=== PATIENT | male | born 1985 | race Caucasian/White ===

== ENCOUNTER 2016-11-14 17:36 | Emergency (ER) | payer OTHER ==
--- NOTE | 2016-11-14 19:53 | ED ---
Skin Complaint - HPI Summary HPI Summary: Pt here w/ Rt thigh abscess x 1 week. Started as a small red bump in his stretch dian (reports he gets these fairly routinely but they go away over time) . This bump worsened over past week. He's been using wet compress and taking baths as well as manipulating it, making it sore and bruised. Today, it ruptured as his work pants were rubbing against it and has had drainage. Denies fever, chills, N/V/D. H/o MRSA + nare swab. - History of Current Complaint Chief Complaint: EDSoftTissueLowExtr Time Seen by Provider: 11/14/16 19:12 Stated Complaint: POSS ABSCESS RT THIGH Hx Obtained From: Patient Pain Intensity: 0 - Allergy/Home Medications Allergies/Adverse Reactions: Allergies Allergy/AdvReac Type Severity Reaction Status Date / Time Oxycodone AdvReac Severe "MAKES ME Verified 11/14/16 19:57 ANXIOUS" PMH/Surg Hx/FS Hx/Imm Hx Previously Healthy: Yes Endocrine/Hematology History: Denies: Hx Diabetes, Hx Thyroid Disease, Autoimmune Disease Cardiovascular History: Reports: Hx Hypertension - when he's nervous - no meds, Other Cardiovascular Problems/Disorders - h/o "fluid around his heart" - has had f/u w/o further tx Denies: Hx Congestive Heart Failure, Hx Deep Vein Thrombosis, Hx Myocardial Infarction, Hx Pacemaker/ICD Respiratory History: Denies: Hx Asthma, Hx Chronic Obstructive Pulmonary Disease (COPD), Hx Lung Cancer GI History: Denies: Hx Gall Bladder Disease, Hx Gastrointestinal Bleed, Hx Ulcer, Hx Urosepsis History: Denies: Hx Kidney Stones, Hx Renal Disease Neurological History: Denies: Hx Dementia, Hx Migraine, Hx Seizures, Hx Transient Ischemic Attacks (TIA) Psychiatric History: Reports: Hx Anxiety - tried lorazepam in past - no current meds Denies: Hx Depression, Hx Schizophrenia, Hx Bipolar Disorder Infectious Disease History: Yes Infectious Disease History: Reports: Hx of Known/Suspected MRSA - + on nasal swab Denies: Hx Clostridium Difficile, Hx Hepatitis, Hx Human Immunodeficiency Virus (HIV), Hx Shingles, Hx Tuberculosis, Hx Known/Suspected VRE, Hx Known/ Suspected VRSA, History Other Infectious Disease, Traveled Outside the [place] in Last 30 Days - Family History Known Family History: Positive: Hypertension - Social History Occupation: Employed Full-time Lives: With Family Alcohol Use: None Hx Substance Use: No Substance Use Type: Reports: None Smoking Status (MU): Current Some Day Smoker Type: Cigarettes Amount Used/How Often: 2-3/week Have You Smoked in the Last Year: Yes Review of Systems Constitutional: Negative Negative: Chest Pain Respiratory: Negative Gastrointestinal: Negative Positive: no symptoms reported Musculoskeletal: Negative Skin: Other - see HPI Neurological: Negative Negative: Headache Positive: Anxious All Other Systems Reviewed And Are Negative: Yes Physical Exam Triage Information Reviewed: Yes Vital Signs On Initial Exam: Initial Vitals Temp Pulse Resp BP Pulse Ox 97.6 F 108 20 161/97 100 11/14/16 17:38 11/14/16 17:38 11/14/16 17:38 11/14/16 17:38 11/14/16 17:38 Vital Signs Reviewed: Yes Appearance: Positive: Well-Appearing - anxious, No Pain Distress, Well-Nourished Skin: Positive: Warm - Erythematous, indurated area of 8cm x 8cm over Rt proximal anterior thigh w/ central scab - scant seropurulent drainage w/ pressure - TTP Head/Face: Positive: Normal Head/Face Inspection Eyes: Positive: Normal, EOMI ENT: Positive: Pharynx normal - mucosa moist Respiratory/Lung Sounds: Positive: Breath Sounds Present Cardiovascular: Positive: Normal, Pulses are Symmetrical in both Upper and Lower Extremities. Negative: Leg Edema Left, Leg Edema Right Musculoskeletal: Positive: Normal, Strength/ROM Intact Neurological: Positive: Normal, Sensory/Motor Intact, Alert, Oriented to Person Place, Time, CN Intact II-III Psychiatric: Positive: Anxious Procedures - Incision and Drainage Site: Rt anterior thigh Anesthesia: Local, Other - marcaine 0.5% - 5cc Instrument(s): Scalpel - #11 scant seropurulent d/c w/ firm scarring within/ hemodynamically stable Packing: Gauze Diagnostics - Vital Signs Vital Signs Temp Pulse Resp BP Pulse Ox 11/14/16 18:32 98.9 F 95 20 155/98 98 11/14/16 17:38 97.6 F 108 20 161/97 100 - Laboratory Lab Statement: Any lab studies that have been ordered have been reviewed, and results considered in the medical decision making process. Course/Dx - Course Course Of Treatment: Tissue is mostly scarred - some loculations ruptured and drained but appears to be more scar tissue than purulent material. Erythema and induration also appears to be more cellulitis. Provided loading dose of clindamycin IV and will d/c w/ PO clindamycin. Cx collected and wound packed. Advised to f/u w/ General Surgery d/t difficult nature of wound and lack of drainage w/ efforts today. Reviewed danger s/sx w/ pt who voices understanding and agrees w/ plan. - Diagnoses Provider Diagnoses: Abscess of right thigh Discharge - Discharge Plan Condition: Stable Disposition: HOME Prescriptions: Clindamycin CAP* [Cleocin 150 MG CAP*] 300 mg PO Q6H #40 cap Ibuprofen TAB* [Motrin TAB* 800 MG] 800 mg PO Q8HR PRN #20 tab PRN Reason: Pain Patient Education Materials: Abscess (ED), Cellulitis (ED) Forms: *Work Release Referrals: No Primary Care Phys,NOPCP [Primary Care Provider] - [facility] [place] [facility] [Outside] Savannah Steward MD [Medical Doctor] - Additional Instructions: You appear to have an abscess on your Right thigh. This was opened and drained then packed with gauze. Keep dressing and gauze in place for 2 days. You need a wound check and dressing change in 2 days by your PCP or a general surgery - do not change dressing on your own. Call tomorrow to schedule a follow-up appointment for tomorrow or Saturday. Contact numbers provided. Complete antibiotics as directed. Take ibuprofen with food for pain as directed. You may keep leg elevated and wear loose clothing to reduce pain, swelling and irritation. *If you develop fever, chills, vomiting, worsening redness (spreading down leg, up abdomen, into groin), return to ED
[2016-11-14] MEDS ORDERED: Clindamycin 600 MG IVPREMIX(* 600 MG/50 ML SDV IV ONE (20:00)
[2016-11-14] MEDS ORDERED: Ibuprofen TAB* 800 MG PO ONE (21:18)
[2016-11-14] MEDS ORDERED: Clindamycin CAP* 150 MG PO ONE (21:32)
[2016-11-14 21:49] VITALS: BP 138/91
--- NOTE | 2016-11-15 16:33 | PN ---
Progress Note - Progress Note Note: Spoke with lab, Patient's abscess is MRSA positive. Patient was placed on Clindamycin, covering most MRSA. Will wait for culture sensitivity before further action is taken, if needed.
== END 2016-11-14 21:48 | disposition home or self-care (01) ==
LOC: ED 17:36
DX: L02.415 Cutaneous abscess of right lower limb (principal); Z87.891 Personal history of nicotine dependence
CPT/HCPCS: 87070; 87205; 87640; 87641; 99283; A9270-GY

== ENCOUNTER 2017-05-10 13:59 | Emergency (ER) | payer OTHER ==
[2017-05-10 14:22] VITALS: BP 154/98
--- NOTE | 2017-05-10 14:53 | UC ---
Throat Pain/Nasal Amrit HPI - HPI Summary HPI Summary: 32 YEAR OLD MALE PRESENTS WITH COMPLAINS OF SORE THROAT, FEVER, AND CHILLS. - History of Current Complaint Chief Complaint: UCRespiratory Stated Complaint: SWOLLEN THROAT,FEVER,COUGH Time Seen by Provider: 05/10/17 14:53 Hx Obtained From: Patient Onset/Duration: Sudden Onset Severity: Moderate Pain Scale Used: 0-10 Numeric - 5 Cough: Nonproductive - Allergies/Home Medications Allergies/Adverse Reactions: Allergies Allergy/AdvReac Type Severity Reaction Status Date / Time Oxycodone AdvReac Severe "MAKES ME Verified 11/14/16 19:57 ANXIOUS" PMH/Surg Hx/FS Hx/Imm Hx Other History Of: Negative For: HIV, Hepatitis B, Hepatitis C - Surgical History Surgical History: None - Family History Known Family History: Positive: Hypertension - Social History Alcohol Use: None Substance Use Type: None Smoking Status (MU): Light Every Day Tobacco Smoker Type: Cigarettes Amount Used/How Often: 2-3/week Have You Smoked in the Last Year: Yes Household Exposure Type: Cigarettes Review of Systems Constitutional: Negative Skin: Negative Eyes: Negative ENT: Sore Throat, Nasal Discharge, Sinus Congestion, Sinus Pain/Tenderness Respiratory: Negative Cardiovascular: Negative Gastrointestinal: Negative Genitourinary: Negative Motor: Negative Neurovascular: Negative Musculoskeletal: Negative Neurological: Negative Psychological: Negative All Other Systems Reviewed And Are Negative: Yes Physical Exam Triage Information Reviewed: Yes Vital Signs: Initial Vital Signs Temp 37.9 C 05/10/17 14:20 Pulse 107 05/10/17 14:20 Resp 18 05/10/17 14:20 BP 154/98 05/10/17 14:20 Pulse Ox 98 05/10/17 14:20 Eye Exam: Normal ENT: Positive: Pharyngeal erythema, Nasal drainage, Tonsillar swelling, Tonsillar exudate Dental Exam: Normal Neck exam: Normal Neck: Positive: 1 Respiratory Exam: Normal Cardiovascular Exam: Normal Abdominal Exam: Normal Musculoskeletal Exam: Normal Neurological Exam: Normal Psychological Exam: Normal Skin Exam: Normal Throat Pain/Nasal Course/Dx - Differential Dx/Diagnosis Provider Diagnoses: PHARYNGITIS Discharge - Discharge Plan Condition: Stable Disposition: HOME Prescriptions: Amoxicillin/Clavulanate TAB* [Augmentin TAB 875*] 875 mg PO BID #20 tab LoraTADine TAB(NF) [Claritin 10 MG TAB(NF)] 10 mg PO DAILY #30 tab Magic M W2 Lukasz/Maal/Nyst/Lido* 5 ml SWISH SPIT QID PRN #120 ml PRN Reason: Sore Throat Patient Education Materials: Pharyngitis (ED) Referrals: No Primary Care Phys,NOPCP [Primary Care Provider] -
== END 2017-05-10 15:25 | disposition home or self-care (01) ==
LOC: UCEAST 13:59
DX: J02.9 Acute pharyngitis, unspecified (principal); R50.9 Fever, unspecified; R05 Cough; Z88.5 Allergy status to narcotic agent; F17.210 Nicotine dependence, cigarettes, uncomplicated
CPT/HCPCS: 87651; 99212; G0463

== ENCOUNTER 2017-08-09 16:13 | Emergency (ER) | payer OTHER ==
[2017-08-09 16:23] VITALS: BP 145/98
--- NOTE | 2017-08-09 17:11 | UC ---
Head Injury HPI - HPI Summary HPI Summary: 32 yo male was at work yesterday Hit the back of his head on a computer table at work Had about 10 minutes of moderate HEREDIA was able to complete his shift without any symptoms other than some right trazepius soreness went to bed work up about one moderate right hemicranial HEREDIA with nausea /vomiting and photophobia states this feels like his typical migraine no trouble with memory no difficulty focusing no phonophobia - History Of Current Complaint Chief Complaint: UCHeadInjury Stated Complaint: HEAD INJURY, AND NAUSEA Time Seen by Provider: 08/09/17 16:43 Hx Obtained From: Patient Onset/Duration: Gradual Onset, Lasting Hours Severity Currently: Moderate Severity Initially: Moderate Pain Intensity: 6 - declines analgesic Pain Scale Used: 0-10 Numeric Character: Dull, Throbbing Aggravating Factor(s): Nothing Alleviating Factor(s): Nothing Associated Signs And Symptoms: Positive: Neck Pain - right trazius, Nausea, Vomiting. Negative: LOC (Time In Secs./Mins/Hrs), LOC Duration Unknown, Confusion, Memory Loss, Seizure - Allergies/Home Medications Allergies/Adverse Reactions: Allergies Allergy/AdvReac Type Severity Reaction Status Date / Time Oxycodone AdvReac Severe "MAKES ME Verified 08/09/17 16:23 ANXIOUS" PMH/Surg Hx/FS Hx/Imm Hx Previously Healthy: Yes Cardiovascular History: Hypertension Neurological History: Migraine Other History Of: Negative For: HIV, Hepatitis B, Hepatitis C - Surgical History Surgical History: None - Family History Known Family History: Positive: Hypertension, Other - migraines - Social History Alcohol Use: None Substance Use Type: None Smoking Status (MU): Former Smoker Type: Cigarettes Amount Used/How Often: 2-3/week Have You Smoked in the Last Year: Yes Household Exposure Type: Cigarettes Review of Systems Constitutional: Negative Skin: Negative Eyes: Photophobia ENT: Negative Respiratory: Negative Cardiovascular: Negative Gastrointestinal: Vomiting, Nausea Genitourinary: Negative Motor: Negative Neurovascular: Negative Musculoskeletal: Negative Neurological: Headache Psychological: Negative Is Patient Immunocompromised?: No All Other Systems Reviewed And Are Negative: Yes Physical Exam Triage Information Reviewed: Yes Appearance: Well-Appearing, No Pain Distress, Well-Nourished Vital Signs: Initial Vital Signs Temp 96.1 F 08/09/17 16:19 Pulse 85 08/09/17 16:19 Resp 18 08/09/17 16:19 BP 145/98 08/09/17 16:19 Pulse Ox 99 08/09/17 16:19 Eyes: Positive: Conjunctiva Clear, Other: - eomi/perrl, fundi benign ENT: Positive: Hearing grossly normal. Negative: Nasal drainage, TMs normal, Trismus, Muffled voice, Hoarse voice Neck: Positive: Supple, Nontender, No Lymphadenopathy Respiratory: Positive: Lungs clear, Normal breath sounds, No respiratory distress, No accessory muscle use Cardiovascular: Positive: RRR, No Murmur Musculoskeletal: Positive: ROM Intact, No Edema Neurological: Positive: Alert, Other: - CN2-12 intact/strenght 5/5, memory intact, dtrs symmetric and brisk, no pronater drift, (-) RHomberg GCS15/15 Head Injury Course/Dx - Course Course Of Treatment: refuses analgesic or antiemetic. refuses light duty. wants only tonight off. 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
[2017-08-09] MEDS ORDERED: Acetaminophen TAB* 325 MG PO ONE (17:28)
== END 2017-08-09 17:35 | disposition home or self-care (01) ==
LOC: UCEAST 16:13
DX: R51 Headache (principal); I10 Essential (primary) hypertension; Z87.891 Personal history of nicotine dependence
CPT/HCPCS: 99212; A9270-GY; G0463

== ENCOUNTER 2017-11-24 10:13 | Emergency (ER) | payer OTHER ==
--- OUTSIDE RECORDS SUMMARY | 2017-11-24 10:19 | XMS REPORT ---
:1985 External Reference #:[id number] Author Organization [facility] Address [address] [address] Phone [phone] Care Team Providers Name Role Phone Prince Hernanedz III, MD Primary Care Physician Unavailable Payers Type Date Identification Numbers Payment Provider Subscriber Medicaid Expires: 2015 Policy Number: [id number] Medicaid Roberto Canseco Group Name: 1 1 [address] PayID: [id number] [place] [address] Commercial Policy Number: [id number] [employer] Roberto Canseco PayID: [id number] [address] [address] [place] [address] Problems Description No Information Family History Date Family Member(s) Problem(s) Comments Mother Hypertension Mother Migraine Social History Type Date Description Comments Marital Status Lives With Spouse Lives With Daughter 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 Began age 25 Recreational Drug Use Denies Drug Use Exercise Type/Frequency Does not exercise Allergies, Adverse Reactions, Alerts Date Description Reaction Status Severity Comments 11/15/2016 Oxycodone active 03/20/2011 NKDA inactive Medications Medication Date Status Form Strength Qnty SIG Indications Ordering Provider Sertraline HCL Active Tablets 50mg 45tabs 1 and 08/27 Prince E. 018 tablets by Mary, mouth every M.D. day Ibuprofen 00/00/0 Active Tablets 200mg 90tabs 400-800mg Unknown 000 doses prn for headaches Sertraline HCL Hx Tablets 50mg 30tabs 1 by mouth Prince E. 018 - every day Mary, MAbundio 018 Sertraline HCL Hx Tablets 25mg 7tabs 1 by mouth F41.9 Prince Bah 018 - every for Mary, day 1 M.Seda 018 week. Please call pt. when Rx is ready Lorazepam Hx Tablets 0.5mg 60tabs 1 po tid Unknown 000 prn Clindamycin Hx Capsules 150mg one capsule Unknown HCL 000 - by mouth four times 018 a day Vital Signs Date Vital Result Comment 11/19/2017 Weight 222.00 lb Heart Rate 72 /min BP Systolic Sitting 148 mmHg BP Diastolic Sitting 96 mmHg O2 % BldC Oximetry 97 % 09/24/2017 Weight 226.00 lb Heart Rate 78 /min BP Systolic Sitting 142 mmHg BP Diastolic Sitting 100 mmHg Body Temperature 98.6 F O2 % BldC Oximetry 97 % 11/27/2016 Heart Rate 80 /min BP Systolic 150 mmHg BP Diastolic 98 mmHg Respiratory Rate 18 /min Body Temperature 96.6 F 11/20/2016 Heart Rate 74 /min Respiratory Rate 16 /min Body Temperature 98.3 F 11/16/2016 Height 72 inches 6'0" Weight 230.00 lb Heart Rate 60 /min BP Systolic 120 mmHg BP Diastolic 88 mmHg Respiratory Rate 16 /min Body Temperature 98.9 F BMI (Body Mass Index) 31.2 kg/m2 06/29/2015 Height 72 inches 6'0" Weight 208.00 lb Pain Level 0 BMI (Body Mass Index) 28.2 kg/m2 03/20/2011 Height 72 inches 6'0" Weight 216.00 lb Heart Rate 74 /min BP Systolic Sitting 138 mmHg L BP Diastolic Sitting 92 mmHg L BMI (Body Mass Index) 29.3 kg/m2 Results Test Date Test Result H/L Range Note Comp Metabolic Panel 11/18/2017 Sodium 141 mmol/L 133-145 Potassium 3.8 mmol/L 3.5-5.0 Chloride 105 mmol/L 101-111 Co2 Carbon Dioxide 29 mmol/L 22-32 Anion Gap 7 mmol/L 2-11 Glucose 91 mg/dL 70-100 Blood Urea Nitrogen 10 mg/dL 6-24 Creatinine 0.82 mg/dL 0.67-1.17 BUN/Creatinine Ratio 12.2 8-20 Calcium 9.3 mg/dL 8.6-10.3 Total Protein 6.7 g/dL 6.4-8.9 Albumin 4.4 g/dL 3.2-5.2 Globulin 2.3 g/dL 2-4 Albumin/Globulin Ratio 1.9 1-3 Total Bilirubin 0.60 mg/dL 0.2-1.0 Alkaline Phosphatase 47 U/L 34-104 Alt 16 U/L 7-52 Ast 15 U/L 13-39 Egfr Non- 108.2 >60 Egfr 139.2 >60 1 Lipid Profile (Trig/Chol/HDL) 11/18/2017 Triglycerides 108 mg/dL 2 Cholesterol 201 mg/dL 3 HDL Cholesterol 42.3 mg/dL 4 LDL Cholesterol 137 mg/dL 5 Laboratory test finding 11/18/2017 TSH (Thyroid Stim Horm) 0.78 mcIU/mL 0.34-5.60 CBC Auto Diff 11/18/2017 White Blood Count 6.4 10^3/uL 3.5-10.8 Red Blood Count 5.31 10^6/uL 4.0-5.4 Hemoglobin 15.0 g/dL 14.0-18.0 Hematocrit 45 % 42-52 Mean Corpuscular Volume 85 fL 80-94 Mean Corpuscular Hemoglobin 28 pg 27-31 Mean Corpuscular HGB Conc 33 g/dL 31-36 Red Cell Distribution Width 14 % 10.5-15 Platelet Count 202 10^3/uL 150-450 Mean Platelet Volume 8.1 um3 7.4-10.4 Abs Neutrophils 3.8 10^3/uL 1.5-7.7 Abs Lymphocytes 1.7 10^3/uL 1.0-4.8 Abs Monocytes 0.5 10^3/uL 0-0.8 Abs Eosinophils 0.3 10^3/uL 0-0.6 Abs Basophils 0 10^3/uL 0-0.2 Abs Nucleated RBC 0 10^3/uL Granulocyte % 59.5 % 38-83 Lymphocyte % 27.1 % 25-47 Monocyte % 8.0 % High 0-7 Eosinophil % 4.7 % 0-6 Basophil % 0.7 % 0-2 Nucleated Red Blood Cells % 0.1 1 Because ethnic data is not always readily available, this report includes an eGFR for both -Americans and non- Americans. The National Kidney Disease Education Program (NKDEP) does not endorse the use of the MDRD equation for patients that are not between the ages of 18 and 70, are , have extremes of body size, muscle mass, or nutritional status, or are non- or non-. According to the National Kidney Foundation, irrespective of diagnosis, the stage of the disease is based on the level of kidney function: Stage Description GFR(mL/min/1.73 m(2)) 1 Kidney damage with normal or decreased GFR 90 2 Kidney damage with mild decrease in GFR 60-89 3 Moderate decrease in GFR 30-59 4 Severe decrease in GFR 15-29 5 Kidney failure <15 (or dialysis) 2 Desirable: <150 Borderline High: 150-199 High: 200-499 Very High: >500 3 Desirable: <200 Borderline High: 200-239 High: >239 4 Low: <40 Desirable: 40-60 High: >60 5 Desirable: <100 Near Optimal: 100-129 Borderline High: 130-159 High: 160-189 Very High: >189 Procedures Date CPT Code Description Status 03/20/2011 57204 EKG Tracing & Interpretation Completed 03/14/2011 93831 ECHO Transthoracic, Real-Time 2D With Doppler And Color Completed Flow Encounters Type Date Location Provider CPT E/M Dx Office Visit 09/24/2017 3:40p [facility] Prince Hernandez, [address] F41.9 Milena Roth M.D. R03.0 Z13.220 Z13.1 R53.83 Office Visit 11/27/2016 9:30a [facility] Nando Chapman [address] L02.415 Of [facility] Office Visit 11/20/2016 9:45a [facility] Nando Chapman 21117 L02.415 Of [facility] Office Visit 11/16/2016 2:15p [facility] N[facility] Chapman [address] L02.415 Of [facility] Office Visit 06/29/2015 3:00p [facility] Yusuf Velásquez, [address] S93.402A Of [facility] Office Visit 03/20/2011 2:00p [facility] Dae Reno, [address] 786.50 Komal 785.1 Plan of Care No Information Available
[2017-11-24 10:27] VITALS: BP 141/85
--- NOTE | 2017-11-24 10:41 | UC ---
Lower Extremity/Ankle HPI - HPI Summary HPI Summary: twisted right ankle when he stepped in to a hole yesterday swelling lateral side of ankle, n/m/c intact - History of Current Complaint Chief Complaint: UCLowerExtremity Stated Complaint: ANKLE INJURY Time Seen by Provider: 11/24/17 10:40 Hx Obtained From: Patient Onset/Duration: Sudden Onset, Lasting Days - 1, Still Present Severity Initially: Mild Severity Currently: Mild Pain Intensity: 1 Pain Scale Used: 0-10 Numeric Aggravating Factor(s): Standing, Ambulation Alleviating Factor(s): Rest, Elevation Able to Bear Weight: Yes - with pain - Allergies/Home Medications Allergies/Adverse Reactions: Allergies Allergy/AdvReac Type Severity Reaction Status Date / Time oxycodone Allergy Anxiety Verified 11/24/17 10:27 Home Medications: Home Medications Acetaminophen TAB* [Tylenol TAB*] 975 mg PO Q6H PRN 11/24/17 [History Confirmed 11/24/17] Sertraline* [Zoloft*] 75 mg PO DAILY 11/24/17 [History Confirmed 11/24/17] PMH/Surg Hx/FS Hx/Imm Hx Previously Healthy: No Psychological History: Anxiety Other History Of: Negative For: HIV, Hepatitis B, Hepatitis C - Surgical History Surgical History: None - Family History Known Family History: Positive: Hypertension, Other - migraines - Social History 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 Lives: With Family Alcohol Use: None Substance Use Type: None Smoking Status (MU): Former Smoker Type: Cigarettes Amount Used/How Often: 2-3/week Have You Smoked in the Last Year: Yes Household Exposure Type: Cigarettes Review of Systems Constitutional: Negative Skin: Negative Eyes: Negative ENT: Negative Respiratory: Negative Cardiovascular: Negative Gastrointestinal: Negative Genitourinary: Negative Motor: Negative Neurovascular: Negative Musculoskeletal: Arthralgia - right ankle/lateral Neurological: Negative Psychological: Negative Is Patient Immunocompromised?: No All Other Systems Reviewed And Are Negative: Yes Physical Exam Triage Information Reviewed: Yes Appearance: Well-Appearing, No Pain Distress, Well-Nourished Vital Signs: Initial Vital Signs Temp 98.4 F 11/24/17 10:22 Pulse 81 11/24/17 10:22 Resp 16 11/24/17 10:22 BP 141/85 11/24/17 10:22 Pulse Ox 98 11/24/17 10:22 Vital Signs Reviewed: Yes Eye Exam: Normal Eyes: Positive: Conjunctiva Clear ENT Exam: Normal ENT: Positive: Normal ENT inspection, Hearing grossly normal. Negative: Nasal congestion, Trismus, Muffled voice, Hoarse voice Dental Exam: Normal Neck exam: Normal Neck: Positive: Supple, Nontender Respiratory Exam: Normal Respiratory: Positive: Chest non-tender, No respiratory distress, No accessory muscle use Cardiovascular Exam: Normal Cardiovascular: Positive: RRR, Pulses Normal, Brisk Capillary Refill Musculoskeletal Exam: Normal Musculoskeletal: Positive: Strength Intact, ROM Intact, Edema @ - right lateral ankle Neurological Exam: Normal Neurological: Positive: Alert, Muscle Tone Normal Psychological Exam: Normal Skin Exam: Normal Diagnostics - Radiology No standard instances Xray Interpretation: Positive (See Comments) Radiology Interpretation Completed By: ED Physician, Radiologist - soft tissue swelling no acute bone injury Lower Extremity Course/Dx - Course Course Of Treatment: cam boot, rice, ibuprofen follow with ortho prn---offered work note but patient refused----follow elevated blood pressure with pcp - Differential Dx/Diagnosis Provider Diagnoses: right ankle sprain, elevated blood presssure without diagnosis of hypertension Discharge - Sign-Out/Discharge Documenting (check all that apply): Discharge - Discharge Plan Condition: Stable Disposition: HOME Patient Education Materials: Ibuprofen (By mouth), Ankle Sprain (DC), Hypertension (ED), R.I.C.E. Treatment (ED) Referrals: Yusuf Velásquez MD [Medical Doctor] - If Needed Prince Hernandez MD [Primary Care Provider] - 2 Weeks - Billing Disposition and Condition Condition: STABLE Disposition: HOME
--- NOTE | 2017-11-24 11:20 | RAD ---
HISTORY: Injury, lateral ankle pain COMPARISONS: None VIEWS: 3, Frontal, lateral, and oblique views of the right ankle FINDINGS: BONE DENSITY: Normal. BONES: There is no displaced fracture. JOINTS: There is no arthropathy. ALIGNMENT: There is no dislocation. SOFT TISSUES: There is soft tissue swelling most pronounced along the lateral malleolus. OTHER FINDINGS: None. IMPRESSION: SOFT TISSUE SWELLING. NO ACUTE OSSEOUS INJURY. IF SYMPTOMS PERSIST, RECOMMEND REPEAT IMAGING.
== END 2017-11-24 11:30 | disposition home or self-care (01) ==
LOC: UCEAST 10:13
DX: S93.401A Sprain of unspecified ligament of right ankle, initial encounter (principal); X50.1XXA Overexertion from prolonged static or awkward postures, initial encounter; Y93.9 Activity, unspecified; Y92.9 Unspecified place or not applicable; F41.9 Anxiety disorder, unspecified; Z88.5 Allergy status to narcotic agent; Z87.891 Personal history of nicotine dependence
CPT/HCPCS: 99212; G0463

== ENCOUNTER 2018-01-21 09:16 | Emergency (ER) | payer OTHER ==
[2018-01-21 09:37] VITALS: BP 156/103
--- NOTE | 2018-02-25 09:21 | UC ---
Lazarus Arredondo Stephanie, scribed for Angie Godwin MD on 01/21/18 at 0955 . Throat Pain/Nasal Amrit HPI - HPI Summary HPI Summary: The pt is a 33 y/o M presenting to with c/o sore throat that began a few days ago. The pt states he has pain with coughing. He reports strep in his household. - History of Current Complaint Chief Complaint: UCGeneralIllness Stated Complaint: SORE THROAT Time Seen by Provider: 01/21/18 09:24 Hx Obtained From: Patient Onset/Duration: Gradual Onset, Lasting Days Severity: Severe Pain Intensity: 8 Pain Scale Used: 0-10 Numeric Cough: Nonproductive Associated Signs & Symptoms: Negative: Fever - Allergies/Home Medications Allergies/Adverse Reactions: Allergies Allergy/AdvReac Type Severity Reaction Status Date / Time oxycodone AdvReac Anxiety Verified 01/21/18 09:29 PMH/Surg Hx/FS Hx/Imm Hx Other History Of: Negative For: HIV, Hepatitis B, Hepatitis C - Surgical History Surgical History: None - Family History Known Family History: Positive: Hypertension, Other - migraines - Social History Occupation: Employed Full-time Lives: With Family Alcohol Use: None Substance Use Type: None Smoking Status (MU): Former Smoker Type: Cigarettes Amount Used/How Often: 2-3/week Have You Smoked in the Last Year: Yes Household Exposure Type: Cigarettes Review of Systems Constitutional: Negative Skin: Negative Eyes: Negative ENT: Sore Throat Respiratory: Negative Cardiovascular: Negative Gastrointestinal: Negative Genitourinary: Negative Motor: Negative Neurovascular: Negative Musculoskeletal: Negative Neurological: Negative Psychological: Negative All Other Systems Reviewed And Are Negative: Yes Physical Exam - Summary Physical Exam Summary: Appearance: Well-Nourished Eye Exam: Normal ENT Exam: TM retracted and dull, not impacted. Posterior pharynx red and swollen. Uvula midline, no sores or exudates, tongue benign Neck: Normal, No adenopathy appreciated Respiratory Exam: Normal, no dyspnea, no tachypnea, normal respiratory rate Chest non-tender, Lungs clear, Normal breath sounds, No respiratory distress, No accessory muscle use Cardiovascular: Heart rate regular, good general skin color, good capillary refill, RRR, No Murmur, Pulses Normal - sitting up. heart rate correlates w left radial pulse , Brisk Capillary Refill Abdominal Exam: Normal, nontender, No Organomegaly, Soft Bowel Sounds: Present Musculoskeletal Exam: Normal Musculoskeletal: Strength Intact Neurological Exam: Normal: nonfocal, grossly intact Psychological Exam: Normal: conversing easily and appropriately Skin Exam: Normal: no visible or reported rash Triage Information Reviewed: Yes Vital Signs: Initial Vital Signs Temp 97.5 F 01/21/18 09:31 Pulse 96 01/21/18 09:31 Resp 18 01/21/18 09:31 BP 156/103 01/21/18 09:31 Pulse Ox 98 01/21/18 09:31 Vital Signs Reviewed: Yes Throat Pain/Nasal Course/Dx - Course Course Of Treatment: RST positive. Reviewed coa / tx plan. Questions as posed answered to the best of my ability. - Differential Dx/Diagnosis Provider Diagnoses: Acute pharyngitis. + Strep throat Discharge - Sign-Out/Discharge Documenting (check all that apply): Patient Departure - Discharge - Discharge Plan Condition: Stable Disposition: HOME Prescriptions: Amoxicillin/Clavulanate TAB* [Augmentin TAB 875*] 875 mg PO BID #20 tab Patient Education Materials: Strep Throat (ED) Referrals: Prince Hernandez MD [Primary Care Provider] - 2 Weeks Additional Instructions: Please follow up with your primary care provider, per routine. Seek medical attention for worse or new problems in the meantime. - Billing Disposition and Condition Condition: STABLE Disposition: Home The documentation as recorded by the Lazarus gonzalez Stephanie accurately reflects the service I personally performed and the decisions made by me, Angie Godwin MD.
== END 2018-01-21 10:05 | disposition home or self-care (01) ==
LOC: UCEAST 09:16
DX: J02.0 Streptococcal pharyngitis (principal); R05 Cough; Z88.5 Allergy status to narcotic agent; Z82.49 Family history of ischemic heart disease and other diseases of the circulatory system; Z82.0 Family history of epilepsy and other diseases of the nervous system; Z87.891 Personal history of nicotine dependence
CPT/HCPCS: 87651; 99212; G0463

== ENCOUNTER 2019-05-30 11:57 | Emergency (ER) | payer OTHER ==
[2019-05-30 12:05] VITALS: BP 147/99
--- NOTE | 2019-05-30 12:15 | UC ---
Throat Pain/Nasal Amrit HPI - HPI Summary HPI Summary: Patient is a 34yo male presenting with his 5 children for complaint of sore throat x3 days. Patient also notes nasal congestion and PND. Notes intermittent subjective fevers. Denies SOB, wheezing. Denies n/v/d and abdominal pain. Patient notes 3 of his children are currently being treated for strep throat. - History of Current Complaint Chief Complaint: UCGeneralIllness Stated Complaint: THROAT PAIN Time Seen by Provider: 05/30/19 12:00 Hx Obtained From: Patient Severity: Mild Pain Intensity: 3 Pain Scale Used: 0-10 Numeric - Allergies/Home Medications Allergies/Adverse Reactions: Allergies Allergy/AdvReac Type Severity Reaction Status Date / Time oxycodone AdvReac Anxiety Verified 05/30/19 12:01 PMH/Surg Hx/FS Hx/Imm Hx Previously Healthy: Yes Other History Of: Negative For: HIV, Hepatitis B, Hepatitis C - Surgical History Surgical History: None - Family History Known Family History: Positive: Hypertension, Other - migraines - Social History Alcohol Use: None Substance Use Type: None Smoking Status (MU): Former Smoker Type: Cigarettes Amount Used/How Often: 2-3/week Have You Smoked in the Last Year: Yes Household Exposure Type: Cigarettes Review of Systems All Other Systems Reviewed And Are Negative: Yes Constitutional: Positive: Fever, Fatigue. Negative: Chills Skin: Positive: Negative Eyes: Positive: Negative ENT: Positive: Sore Throat, Sinus Congestion. Negative: Ear Ache, Nasal Discharge, Sinus Pain/Tenderness Respiratory: Positive: Negative, Cough - pt notes cough only in the morning due to PND. Negative: Shortness Of Breath Cardiovascular: Positive: Negative. Negative: Palpitations, Chest Pain Gastrointestinal: Positive: Negative. Negative: Abdominal Pain, Vomiting, Diarrhea, Nausea Musculoskeletal: Positive: Negative Neurological: Positive: Negative Physical Exam Triage Information Reviewed: Yes Appearance: Well-Appearing, No Pain Distress, Well-Nourished Vital Signs: Initial Vital Signs Temp 97.8 F 05/30/19 12:01 Pulse 72 05/30/19 12:01 Resp 18 05/30/19 12:01 BP 147/99 05/30/19 12:01 Pulse Ox 99 05/30/19 12:01 Vital Signs Reviewed: Yes Eyes: Positive: Conjunctiva Clear ENT: Positive: Hearing grossly normal, Pharyngeal erythema, Nasal congestion, Nasal drainage - PND, TMs normal, Tonsillar swelling, Tonsillar exudate, Uvula midline. Negative: Trismus, Muffled voice, Hoarse voice, Sinus tenderness Neck exam: Normal Neck: Positive: Supple, Nontender, No Lymphadenopathy Respiratory Exam: Normal Respiratory: Positive: Lungs clear, Normal breath sounds, No respiratory distress, No accessory muscle use. Negative: Crackles, Rhonchi, Stridor, Wheezing Cardiovascular Exam: Normal Cardiovascular: Positive: RRR Neurological: Positive: Alert Psychological: Positive: Age Appropriate Behavior Skin Exam: Normal Throat Pain/Nasal Course/Dx - Course Course Of Treatment: Patient being treated based on history of children having strep and his PE findings, including tonsilar swelling and exudates. Rapid strep was deemed unnecessary, as patient was going to be treated regardless of result. Patient given prescription for amoxicillin and may continue to use OTC medications for symptomatic relief. Patient voiced understanding and agreed to treatment plan. - Differential Dx/Diagnosis Provider Diagnosis: Strep pharyngitis, Strep throat exposure Discharge ED - Sign-Out/Discharge Documenting (check all that apply): Patient Departure All imaging exams completed and their final reports reviewed: No Studies - Discharge Plan Condition: Stable Disposition: HOME Prescriptions: Amoxicillin PO (*) [Amoxicillin 500 MG CAP*] 500 mg PO Q12H #20 cap Patient Education Materials: Strep Throat (ED) Referrals: Prince Hernandez MD [Primary Care Provider] - If Needed Additional Instructions: As discussed, you are being treated for strep throat. Take amoxicillin as prescribed for the treatment of strep throat. You may take ibuprofen and/or tylenol as directed for fever and pain relief. You may use over the counter throat sprays or lozenges for symptomatic relief. Get plenty of rest and fluids. Return or go to the emergency room if symptoms worsen or do not resolve in 10 days. - Billing Disposition and Condition Condition: STABLE Disposition: Home
== END 2019-05-30 12:27 | disposition home or self-care (01) ==
LOC: UCEAST 11:57
DX: J02.0 Streptococcal pharyngitis (principal); R09.81 Nasal congestion; R09.82 Postnasal drip; Z88.5 Allergy status to narcotic agent; Z87.891 Personal history of nicotine dependence
CPT/HCPCS: 99212; G0463

== ENCOUNTER 2021-04-30 14:00 | Observation (INO) ==
[2021-04-30 17:43] LABS: ABS Eosinophils 0.1 10^3/ul (0-0.6); ABS Lymphocytes 1.5 10^3/ul (1.0-4.8); ABS Monocytes 0.9 10^3/ul (0-0.8); ABS Neutrophils 9.6 10^3/ul (1.5-7.7); Eosinophil % 1.2 %; Hematocrit 44 % (42-52); Lymphocyte % 12.2 %; Mean Corpuscular HGB Conc 35 g/dL (31-36); Mean Corpuscular Hemoglobin 30 pg (27-31); Mean Corpuscular Volume 86 fL (80-94); Mean Platelet Volume 7.7 fL (7.4-10.4); Platelet Count 202 10^3/uL (150-450); Red Blood Count 5.08 10^6 /uL (4.18-5.48); Red Cell Distribution Width 14 % (10-15); White Blood Count 12.1 10^3/uL (3.5-10.8)
[2021-04-30 17:45] LABS: Urine Appearance Clear; Urine Bilirubin Negative (Negative); Urine Blood Negative (Negative); Urine Color Yellow; Urine Glucose Negative (Negative); Urine Ketones 1+ (Negative); Urine Nitrite Negative (Negative); Urine Protein Negative (Negative); Urine Specific Gravity 1.012 (1.002-1.030); Urine Urobilinogen Negative (Negative)
[2021-04-30 18:00] LABS: Albumin 4.6 g/dL (3.2-5.2); Calcium 9.3 mg/dL (8.6-10.3); EGFR African American 137.6 (>60); EGFR Non-African American 113.7 (>60); Globulin 2.6 g/dL (2-4); Magnesium 1.9 mg/dL (1.9-2.7); Potassium 3.9 mmol/L (3.5-5.0); Total Protein 7.2 g/dL (6.4-8.9)
[2021-04-30 18:01] LABS: Albumin/Globulin Ratio 1.8 (1-3); C Reactive Protein 4.18 mg/L (<8.01); Total Bilirubin 0.5 mg/dL (0.2-1.0)
[2021-04-30] MEDS ORDERED: Iohexol 300 (CONTRAST) 10 ML SDV IV ONE (18:06)
[2021-04-30] MEDS ORDERED: Ondansetron 4 mg VIAL 2 MG/ML 2 ml VIAL IV PRN (21:29)
[2021-04-30] MEDS ORDERED: HYDROmorphone 0.5 MG/0.5 ML SYRINGE IV SLOW PU PRN (21:41)
[2021-04-30] MEDS ORDERED: D5W 1/2 NS KCl 20 meq 1000 ml 1,000 ML IV SCH (22:00)
[2021-04-30] MEDS ORDERED: ZOSYN 3.375 GM x ONE DOSE over 30 miuntes IV (22:00)
[2021-05-01] MEDS ORDERED: ZOSYN 3.375 GM Q8H per EXTENDED INFUSION IV ONE (02:00)
[2021-05-01] MEDS ORDERED: Piperacillin/Tazobactam VIAL 3.375 GM in NS 0.9% 100 ml BAG 100 ML IVPB SCH (10:00)
[2021-05-01] MEDS ORDERED: Bupivacaine 0.25% SDV PF 10 ML VIAL INJ ONE ×2 (12:24)
[2021-05-01] MEDS ORDERED: Lidocaine 2% PF 5 ML VIAL ONE (12:26)
[2021-05-01] MEDS ORDERED: Midazolam 2 mg/2 ml VIAL 1 mg/ml 2 ml VIAL (2 mg) ONE (12:26)
[2021-05-01] MEDS ORDERED: Succinylcholine 200 mg VIAL 20 mg/ml 10 ml VIAL (200 mg) ONE (12:26)
[2021-05-01] MEDS ORDERED: Propofol 10 MG/ML 20 ML BTL ONE (12:26)
[2021-05-01] MEDS ORDERED: fentaNYL 100 mcg/2 ml 50 MCG/ML VIAL ONE ×2 (12:26→14:35)
[2021-05-01] MEDS ORDERED: Rocuronium 50 mg VIAL 10 mg/ml 5 ml VIAL (50 mg) ONE (12:27)
[2021-05-01] MEDS ORDERED: Dexamethasone IV 4 MG/ML VIAL 1 ml VIAL ONE (13:07)
[2021-05-01] MEDS ORDERED: Ondansetron 4 mg VIAL 2 MG/ML 2 ml VIAL ONE (13:07)
[2021-05-01] MEDS ORDERED: DiMENhydriNATE IV 50 mg/ml 1 ml VIAL IV PUSH PRN (13:17)
[2021-05-01] MEDS ORDERED: Acetaminophen IV 1 GM/100ML 100 ML IV ONE ×2 (13:17→14:14)
[2021-05-01] MEDS ORDERED: Naloxone 0.4 mg VIAL 0.4 mg/ml 1 ml VIAL IV PRN (13:17)
[2021-05-01] MEDS ORDERED: Labetalol IV 5 MG/ML 20 ml VIAL ONE (13:53)
[2021-05-01] MEDS: Labetalol IV 5 MG/ML 20 ml VIAL IV PUSH PRN ×2 (13:54→14:06)
[2021-05-01] MEDS ORDERED: Labetalol IV 5 MG/ML 20 ml VIAL IV PUSH PRN (14:00)
[2021-05-01] MEDS: fentaNYL 100 mcg/2 ml 50 MCG/ML VIAL IV PRN ×4 (14:35→14:53)
[2021-05-01] MEDS ORDERED: hydrALAZINE 20 mg/ml 1 ML Vial IV ONE (14:51)
[2021-05-01 15:30] VITALS: BP 152/98
== END 2021-05-01 15:40 | disposition home or self-care (01) ==
LOC: SSU 14:00 → ED 14:00 → SSU 05-01 03:15
PROVIDERS: ADMIT Surgery; ATTEND Surgery